=== PATIENT | female | born 1985 | race Caucasian/White ===

== ENCOUNTER 2021-07-07 12:00 | Emergency (ER) | payer OTHER ==
[~2021-07-07] VITALS: Ht 170.2 cm; Wt 61.7 kg
[2021-07-07 12:00] VITALS: BP_SYST 117
--- NOTE | 2021-07-07 12:00 | NUR ---
Patient triaged and placed in waiting room. VSS and patient appears in no acute distress at this time. Accompanied by SELF, awaiting available bed, and MD notified of need for MSE.
--- NOTE | 2021-07-07 13:17 | NUR ---
DR MESSINA EVALUATING PT IN TRIAGE ROOM
[2021-07-07] MEDS ORDERED: MAG HYDROX/AL HYDROX/SIMETH 30 ML, DICYCLOMINE HCL 20 MG, LIDOCAINE VISCOUS 2% 15ML (PO... PO ONE ×3 (13:45)
[2021-07-07 14:30] LABS: BASOPHILS # (AUTO) 0.1 K/uL (0.0-0.2); BASOPHILS % (AUTO) 0.4 % (0.0-2.0); EOSINOPHILS % (AUTO) 0.3 % (0.0-4.0); HEMOGLOBIN 12.5 g/dL (12.0-16.0); LYMPHOCYTES # (AUTO) 1.9 K/uL (1.0-5.5); LYMPHOCYTES % (AUTO) 13.7 % (20.5-51.5); MEAN CORPUSCULAR HEMOGLOBIN 32 pg (27-31); MEAN CORPUSCULAR HGB CONC 34 % (32-36); MEAN CORPUSCULAR VOLUME 94 fL (79.0-98.0); MONOCYTES # (AUTO) 1.5 K/uL (0.0-1.0); MONOCYTES % (AUTO) 10.5 % (1.7-9.3); NEUTROPHILS # (AUTO) 10.5 K/uL (1.8-7.7); NEUTROPHILS % (AUTO) 75.1 % (40.0-70.0); PLATELET COUNT (AUTO) 285 K/uL (130-430); RED BLOOD CELL COUNT(AUTO) 3.95 MIL/uL (4.2-6.2); RED CELL DISTRIBUTION WIDTH 12.6 % (9.0-15.0); WHITE BLOOD COUNT (AUTO) 13.9 K/uL (4.8-10.8)
[2021-07-07 14:35] LABS: CALCIUM 8.9 mg/dL (8.4-11.0); CREATININE 0.87 mg/dL (0.55-1.30)
[2021-07-07 15:09] LABS: POTASSIUM 2.7 mmol/L (3.5-5.1)
[2021-07-07 15:11] LABS: ALBUMIN 3.5 g/dL (3.4-4.8); TOTAL BILIRUBIN 0.7 mg/dL (0.0-1.0)
[2021-07-07] MEDS ORDERED: FAMO20TA8 PO (15:21)
--- NOTE | 2021-07-07 16:01 | NUR ---
DR OTTO OUT TO TRIAGE TO EVALUATE PT, UNABLE TO LOCATE PT AT THIS TIME
[2021-07-07 16:29] LABS: BILIRUBIN,URINE 1+ (NEGATIVE); BLOOD, URINE 2+ (NEGATIVE); COLOR,URINE YELLOW (YELLOW); GLUCOSE,URINE NEGATIVE (NEGATIVE); KETONES,URINE 3+ (NEGATIVE); LEUKOCYTE ESTERASE ,URINE TRACE (NEGATIVE); NITRITE, URINE NEGATIVE (NEGATIVE); PROTEIN URINE 2+ (NEGATIVE); UROBILINOGEN,URINE 0.2 (0.2-1.0)
[2021-07-07 16:33] LABS: CLARITY/URINE SLIGHTLY HAZY (CLEAR)
[2021-07-07 16:42] LABS: BACTERIA,URINE MODERATE /HPF (None Seen)
== END 2021-07-07 16:01 | disposition left against medical advice (07) ==
LOC: SED 12:00
DX: R10.10 Upper abdominal pain, unspecified (principal); Z88.0 Allergy status to penicillin; Z79.899 Other long term (current) drug therapy
CPT/HCPCS: 36415; 80053; 81000; 81025; 83690; 85025; 87086; 99283; J2001